=== PATIENT | female | born 1950 | race Caucasian/White ===

== ENCOUNTER → 2025-01-29 08:41 | Outpatient (CLI) | payer MEDICARE, SELFPAY ==
[2025-01-29 09:29] LABS: Cholesterol 181 mg/dL (140-199); HDL Cholesterol 67 mg/dL (40-60); Triglycerides 97 mg/dL (35-150)
== END ==
PROVIDERS: PCP Student in an Organized Health Care Education/Training Program; Referring Provider Family Medicine; Visit Provider Family Medicine
DX: E78.5 Hyperlipidemia, unspecified (principal)
CPT/HCPCS: 36415; 80061

== ENCOUNTER → 2025-02-06 15:36 | Outpatient (CLI) | payer MEDICARE, SELFPAY ==
[2025-02-06 15:55] LABS: Appearance Urine UA CLEAR; Bilirubin Urine UA NEGATIVE (NEGATIVE); Color Urine UA YELLOW; Glucose Urine UA NEGATIVE (Negative); Ketones Urine UA TRACE (NEGATIVE); Leukocyte Esterase Urine UA NEGATIVE (NEGATIVE); Nitrite Urine UA NEGATIVE (Negative); Occult Blood Urine UA NEGATIVE (Negative); Protein Urine UA NEGATIVE (Negative); Specific Gravity Urine UA 1.020 (1.000-1.035); Urobilinogen Urine UA 0.2 E.U./dL (0.2)
[2025-02-06 15:58] LABS: pH Urine UA 6.0 (4.5-8.0)
[2025-02-06 16:02] LABS: Culture Indicated Urine Cult Not Indicated
== END ==
PROVIDERS: PCP Student in an Organized Health Care Education/Training Program; Referring Provider Student in an Organized Health Care Education/Training Program; Visit Provider Student in an Organized Health Care Education/Training Program
DX: R31.29 Other microscopic hematuria (principal)
CPT/HCPCS: 81001

== ENCOUNTER → 2025-02-09 16:31 | Outpatient (CLI) | payer MEDICARE, SELFPAY ==
--- NOTE | 2025-02-09 16:32 | DI.US.S_ITS ---
PROCEDURE: US RENAL COMPLETE INDICATIONS: Hematuria TECHNIQUE: Real-time scanning was performed of the kidneys and bladder, with image documentation. COMPARISON: None. FINDINGS: Kidneys: Kidneys are normal in size. Right kidney measures 10.8 cm long; left kidney measures 10.6 cm long. Right renal cortical thickness is 0.9 cm; left renal cortical thickness is 0.9 cm. Renal cortical echotexture is normal. No hydronephrosis or nephrolithiasis. No suspicious solid mass lesions. Bladder: Unremarkable appearance. Bilateral jets are present. Postvoid images were not obtained. Miscellaneous: No free pelvic fluid. IMPRESSION: Borderline size kidneys with mild cortical thinning, no hydronephrosis. Dictated by: Gianni Bryant M.D. on 02/10/2025 at 17:26 Approved by: Gianni Bryant M.D. on 02/10/2025 at 17:29
== END ==
LOC: US 16:31
PROVIDERS: PCP Student in an Organized Health Care Education/Training Program; Referring Provider Student in an Organized Health Care Education/Training Program; Visit Provider Student in an Organized Health Care Education/Training Program
DX: R31.29 Other microscopic hematuria (principal)
CPT/HCPCS: 76770

== ENCOUNTER → 2025-04-24 12:38 | Outpatient (CLI) | payer MEDICARE, SELFPAY ==
--- NOTE | 2025-04-24 12:39 | DI.ECHO.S_ITS ---
[facility] : : [address] : : [place] : : [id number] : : Phone: [phone] Echocardiogram Report + + :Name: EMILY CESAR Study Date: 04/24/2025 Height: 66 in : :[facility] ReadingLocation: Weight: 163 lb : : Gender: Female BSA: 1.8 m2 : :: 1950 Age: 74 yrs BP: 141/79 mmHg: :Reason For Study: Aortic stenosis : :Ordering Physician: IRENA TRISTAN Performed By: Dave Rodgers : :Referring: IRENA TRISTAN : + + Interpretation Summary - The left ventricular contractility is normal. Estimated ejection fraction is greater than 60% with no segmental wall motion abnormalities. No LVH. Normal diastolic function. - The right ventricular contractility is normal. - All cardiac chambers are of normal size. - Mild aortic valvular stenosis with heavy calcifications of the noncoronary cusp with associated reduced mobility. The right and left coronary cusps move freely. Peak velocity is 2.4 m/s with mean gradient of 14 mmHg. Dimensionless index of 0.49. Mild aortic insufficiency. - No obvious intracardiac shunts. - No obvious intracardiac masses nor thrombi. - No hemodynamically significant pericardial effusion. - Normal right-sided filling pressures. Conclusion: Normal biventricular function with mild aortic valvular disease. Procedure: A two-dimensional transthoracic echocardiogram with color flow and Doppler was performed. The study quality was technically adequate. The patient had an echocardiogram, but there is no comparison study available. The patient was in normal sinus rhythm during the exam. Left Ventricle: The left ventricle is normal in size and wall thickness. Left ventricular systolic function is normal. The ejection fraction is estimated to be 60-65%. There are no focal wall motion abnormalities. Normal diastolic function. Right Ventricle: The right ventricle is normal in size and function. Atria: The left atrial size is normal. Right atrial size is normal. There is no Doppler evidence for an interatrial shunt. Mitral Valve: There is mild mitral annular calcification. The mitral valve leaflets appear to open well. There is no mitral valve stenosis. There is trace mitral regurgitation. Aortic Valve: The aortic valve is trileaflet. Heavy calcification on the non-coronary cusp, reducing the leaflet mobility. There is mild aortic stenosis. The calculated aortic valve area is 1.6 cm2. The peak aortic velocity is 2.4 m/sec. The aortic valve mean gradient is 13.8 mmHg. sev ratio: 0.49. There is mild aortic regurgitation. Tricuspid Valve: The tricuspid valve leaflets are thin and pliable. There is trace tricuspid regurgitation. The right ventricular systolic pressure is estimated to be at least 27 mmHg based on an estimated right atrial pressure of 8 mm Hg. Pulmonic Valve: The pulmonic valve is not well seen, but is grossly normal. There is trace pulmonic regurgitation. Great Vessels: The aortic root is normal size. The ascending aorta is normal in size. The aortic arch is normal in size. The pulmonary artery is normal size. The IVC is of normal diameter and collapses less than 50% with a sniff. This suggests a right atrial pressure of 8 mm Hg. Pericardium/ Pleura There is no pericardial effusion. MMode/2D Measurements & Calculations LVIDd: 4.8 cm LVOT diam: 2.1 cm LVIDs: 3.7 cm Ao root diam: 3.3 cm FS: 21.7 % asc Aorta Diam: 3.5 cm EPSS: 1.3 cm Ao Arch Diam (Prox Trans): 2.7 cm IVSd: 0.96 cm LVPWd: 1.0 cm LV aponte. diameter/BSA (cm/m^2): 2.6 LV sys. diameter/BSA (cm/m^2): 2.0 LA A2 area: 17.5 cm2 RA long axis: 4.6 cm LA A4 area: 17.6 cm2 RA area: 13.8 cm2 LA length (vol): 5.3 cm RA vol: 34.7 ml LA vol: 49.8 ml RA : 18.9 ml/m2 LA vol index: 27.2 ml/m2 IVC diam: 1.8 cm RVD1 (basal): 2.6 cm RVD2 (mid): 2.1 cm TAPSE: 2.0 cm Doppler Measurements & Calculations Ao V2 max: 238.2 cm/sec LVOT Max Jimenez: 109.9 cm/sec Ao V2 mean: 175.8 cm/sec LV V1 max P.8 mmHg Ao max P.7 mmHg LV V1 VTI: 26.9 cm Ao mean P.8 mmHg ANISA(I,D): 1.7 cm2 Ao V2 VTI: 54.7 cm ANISA(V,D): 1.6 cm2 sev ratio: 0.49 ANISA indexed to BSA (cm^2/m^2): 0.93 AI P1/2t: 644.4 msec AI dec slope: 183.5 cm/sec2 MV E max jimenez: 76.4 cm/sec TR max jimenez: 203.2 cm/sec MV A max jimenez: 82.3 cm/sec TR max P.5 mmHg MV E/A: 0.93 PA V2 max: 72.7 cm/sec Med Peak E' Jimenze: 4.6 cm/sec PA V2 mean: 57.6 cm/sec E/E' med: 16.7 PA mean P.4 mmHg Lat Peak E' Jimenez: 8.4 cm/sec PA pr(Accel): 17.3 mmHg E/E' lat: 9.1 E/e' average: 12.9 MV dec time: 0.29 sec SV(LVOT): 92.8 ml Qp/Qs (V,Ao): 1.0/13.7 Qp/Qs (V,LVOT): 1.0/2.6 Reading Physician:ADAN
== END ==
LOC: ECHO 12:39
PROVIDERS: PCP Student in an Organized Health Care Education/Training Program; Referring Provider Internal Medicine; Visit Provider Internal Medicine
DX: I08.3 Combined rheumatic disorders of mitral, aortic and tricuspid valves (principal)
CPT/HCPCS: 93306

== ENCOUNTER → 2025-06-20 09:13 | Outpatient (CLI) | payer MEDICARE, SELFPAY ==
[2025-06-20 10:21] LABS: Cholesterol 152 mg/dL (140-199); HDL Cholesterol 59 mg/dL (40-60); Triglycerides 154 mg/dL (35-150)
[2025-06-20 18:11] LABS: Influenza A - CEPHEID Flu A NEGATIVE (NEGATIVE); Influenza B - CEPHEID Flu B NEGATIVE (NEGATIVE)
[2025-06-20 18:13] LABS: COVID-19 CEPHEID 4-PLEX PCR Negative (Negative)
== END ==
PROVIDERS: Student in an Organized Health Care Education/Training Program; PCP Student in an Organized Health Care Education/Training Program; Referring Provider Internal Medicine; Visit Provider Internal Medicine
DX: E78.5 Hyperlipidemia, unspecified (principal); R05.1 Acute cough
CPT/HCPCS: 36415; 80061; 87637

== ENCOUNTER → 2025-06-20 16:21 | Outpatient (CLI) | payer MEDICARE, SELFPAY ==
--- NOTE | 2025-06-20 16:22 | DI.RAD.S_ITS ---
PROCEDURE: XR CHEST 2V INDICATIONS: 10D cough; incomplete relief w/augmentin TECHNIQUE: 2 views of the chest were acquired. COMPARISON: None. FINDINGS: Surgical changes and devices: None. Lungs and pleura: Lungs are clear. No pleural effusions or pneumothorax. Mediastinum: Mediastinal contours are normal. Heart size is normal. Bones and chest wall: No suspicious bony abnormalities. Soft tissues appear unremarkable. IMPRESSION: No acute cardiopulmonary abnormality is seen. Dictated by: Jesus Marx M.D. on 06/20/2025 at 16:51 Approved by: Jesus Marx M.D. on 06/20/2025 at 16:52
== END ==
PROVIDERS: PCP Student in an Organized Health Care Education/Training Program; Referring Provider Student in an Organized Health Care Education/Training Program; Visit Provider Student in an Organized Health Care Education/Training Program
DX: J06.9 Acute upper respiratory infection, unspecified (principal); E78.5 Hyperlipidemia, unspecified; R05.1 Acute cough
CPT/HCPCS: 36415; 71046; 80061; 87637